=== PATIENT | female | born 1985 | race Caucasian/White ===

== ENCOUNTER 2020-10-12 16:49 | Outpatient (CLI) | payer OTHER ==
--- NOTE | 2020-10-13 08:26 | XRAY Report ---
PROCEDURE: Knee 4 View BILAT INDICATIONS: Bilateral knee pain TECHNIQUE: 3 views of the left and right knee(s) were acquired. COMPARISON: None. FINDINGS: Bones: No fractures or dislocations. No suspicious bony lesions. Mild bilateral medial and lateral joint space narrowing. Scattered degenerative spurring and subchondral sclerosis. Soft tissues: No joint effusion. No suspicious soft tissue calcifications. IMPRESSION: Mild bilateral knee joint degeneration. Reviewed by: Salomón Ferris MD on 10/13/2020 8:24 AM PDT Approved by: Salomón Ferris MD on 10/13/2020 8:24 AM PDT Station ID: [id number]
== END 2020-10-12 16:50 | disposition home or self-care (01) ==
LOC: DI 16:49
PROVIDERS: ATTEND Physician Assistant
DX: M25.561 Pain in right knee (principal); M25.562 Pain in left knee; M17.0 Bilateral primary osteoarthritis of knee

== ENCOUNTER 2021-01-17 09:40 | Outpatient (CLI) | payer OTHER | END 2021-01-17 09:41 | disposition critical access hospital (66) | LOC: EMS 09:40 | DX: R07.2 Precordial pain (principal); M25.512 Pain in left shoulder; M25.511 Pain in right shoulder; R11.2 Nausea with vomiting, unspecified; R73.09 Other abnormal glucose | CPT/HCPCS: A0425; A0427 ==

== ENCOUNTER 2021-01-17 09:57 | Emergency (ER) | payer OTHER ==
[2021-01-17] MEDS ORDERED: SODIUM CHLORIDE 0.9% 1,000 ML IV STA (10:04)
[2021-01-17] MEDS ORDERED: INSULIN REGULAR HUMAN 100 UNIT/1 ML 10 ML MDV IVP STA ×2 (10:04→12:36)
[2021-01-17] MEDS ORDERED: HYDROmorphone 1 MG/ML CARPUJECT IVP STA (10:04)
--- NOTE | 2021-01-17 10:06 | ED Physician Documentation ---
PD HPI CHEST PAIN - Stated complaint Stated Complaint: CP - History obtained from History obtained from: Patient, EMS - Additional information Additional information: 36-year-old woman with history of type 1 diabetes, uses an insulin pump. Replaced her insulin pump port site last night with a new batch. This morning she got up and felt nauseous after drinking coffee. Subsequently vomited twice and after the second episode of vomiting developed substernal chest pain radiating to both shoulders and both arms now with shortness of breath. Denies pedal edema or calf pain. She is not on control. No recent travel. Her blood sugar has been going up this morning. She is generally very well controlled and for EMS it was 355. Took aspirin prior to arrival. 324 mg. Review of Systems Ten Systems: 10 systems reviewed and negative Constitutional: reports: Reviewed and negative Ears: reports: Reviewed and negative PD PAST MEDICAL HISTORY - Allergies Allergies/Adverse Reactions: Allergies Allergy/AdvReac Type Severity Reaction Status Date / Time cefaclor [From Ceclor] Allergy Hives Verified 01/17/21 10:15 PD ED PE NORMAL - Vitals Vital signs reviewed: Yes - General General: Alert and oriented X 3 (She appears restless and in pain) - HEENT HEENT: PERRL, EOMI - Neck Neck: Supple, no meningeal sign, No bony TTP - Cardiac Cardiac: Other (Tachycardic but regular without murmur) - Respiratory Respiratory: No respiratory distress, Clear bilaterally - Abdomen Abdomen: Normal bowel sounds, Soft, Non tender - Back Back: No CVA TTP, No spinal TTP - Derm Derm: Normal color, Warm and dry - Extremities Extremities: No edema, No calf tenderness / cord - Neuro Neuro: Alert and oriented X 3, Normal speech Results - Vitals Vitals: Vital Signs - 24 hr 01/17/21 01/17/21 10:04 12:18 Temperature 36.9 C 36.6 C Heart Rate 100 97 Respiratory 18 18 Rate Blood Pressure 160/80 H 143/83 H O2 Saturation 100 99 Oxygen O2 Source Room air - EKG (time done) 1003 Rate: Rate (enter#) (100) Rhythm: Sinus tachycardia, LAE Gruver: Normal Intervals: Normal NC QRS: Normal Ischemia: Normal ST segments. No: ST elevation c/w ischemia, ST depression Computer interpretation: Agree with computer - Labs Labs: Laboratory Tests 08/10/0401/17/21 01/17/21 10:23 10:23 10:23 WBC 20.7 H RBC 4.67 Hgb 14.2 Hct 41.6 MCV 89.1 MCH 30.4 MCHC 34.1 RDW 12.4 Plt Count 386 MPV 9.8 Neut # (Auto) 17.9 H Lymph # (Auto) 2.3 Baca # (Auto) 0.3 Eos # (Auto) 0.0 Baso # (Auto) 0.1 Absolute Nucleated RBC 0.00 Nucleated RBC % 0.0 Manual Slide Review Indicated Platelet Estimate NORMAL (130-450,000) Platelet Morphology NORMAL APPEARANCE RBC Morph Micro Appear NORMAL APPEARANCE VBG pH VBG pCO2 VBG pO2 VBG HCO3 VBG Total CO2 VBG O2 Saturation VBG Base Excess Sodium 133 L Potassium 4.3 Chloride 98 L Carbon Dioxide 16 L Anion Gap 19.0 H BUN 25 H Creatinine 1.0 Estimated GFR (MDRD) 63 L Glucose 420 H Calcium 9.5 Total Bilirubin 1.4 H AST 27 ALT 32 Alkaline Phosphatase 53 Troponin I High Sens 3.0 Total Protein 7.8 Albumin 4.4 Globulin 3.4 Albumin/Globulin Ratio 1.3 Lipase 23 Serum Ketones 01/17/21 01/17/21 10:23 10:23 WBC RBC Hgb Hct MCV MCH MCHC RDW Plt Count MPV Neut # (Auto) Lymph # (Auto) Baca # (Auto) Eos # (Auto) Baso # (Auto) Absolute Nucleated RBC Nucleated RBC % Manual Slide Review Platelet Estimate Platelet Morphology RBC Morph Micro Appear VBG pH 7.381 VBG pCO2 31.2 L VBG pO2 27.0 VBG HCO3 18.1 L VBG Total CO2 19.0 L VBG O2 Saturation 53.2 L VBG Base Excess -5.7 L Sodium Potassium Chloride Carbon Dioxide Anion Gap BUN Creatinine Estimated GFR (MDRD) Glucose Calcium Total Bilirubin AST ALT Alkaline Phosphatase Troponin I High Sens Total Protein Albumin Globulin Albumin/Globulin Ratio Lipase Serum Ketones NEGATIVE PD MEDICAL DECISION MAKING - ED course ED course: 36-year-old woman with longstanding type 1 diabetes presents with hyperglycemia, vomiting and chest pain. The chest pain follow the vomiting so the differential included Boerhaave's as well as the usual causes of chest pain. As such CT angiography of the chest was done and negative and there is no evidence of heart disease otherwise. Her vital signs normalized after a milligram of Dilaudid and a liter of normal saline. She was also given some IV insulin here. While she does not technically have DKA, she was certainly trending in that direction but no ketonemia right now and her venous pH is normal. Departure - Departure Disposition: 01 Home, Self Care Clinical Impression: Uncontrolled diabetes mellitus Qualifiers: Diabetes mellitus type: type 1 Glycemic state: with hyperglycemia Qualified Code(s): E10.65 - Type 1 diabetes mellitus with hyperglycemia Chest pain Qualifiers: Chest pain type: unspecified Qualified Code(s): R07.9 - Chest pain, unspecified Vomiting Qualifiers: Vomiting type: unspecified Vomiting Intractability: non-intractable Nausea presence: with nausea Qualified Code(s): R11.2 - Nausea with vomiting, unspecified Condition: Good Record reviewed to determine appropriate education?: Yes Instructions: ED Chest Pain NonCardiac Comments: As discussed, while you are not in DKA today, you were sort of trending in that direction so make sure to drink plenty of fluids today and I would recommend changing her port site and returning for new or worsening symptoms. Follow-up with your primary care physician and sociology teacher as well. Discharge Date/Time: 01/17/21 13:23
--- NOTE | 2021-01-17 10:23 | XRAY Report ---
PROCEDURE: Chest 1 View X-Ray INDICATIONS: chest pain TECHNIQUE: One view of the chest was acquired. COMPARISON: None FINDINGS: Surgical changes and devices: None. Lungs and pleura: No pleural effusions or pneumothorax. Lungs are clear. Mediastinum: Mediastinal contours appear normal. Heart size is normal. Bones and chest wall: No suspicious bony lesions. Overlying soft tissues appear unremarkable. IMPRESSION: No acute cardiopulmonary disease process. Reviewed by: Rosaura Breen MD, PhD on 01/17/2021 10:21 AM PDT Approved by: Rosaura Breen MD, PhD on 01/17/2021 10:21 AM PDT Station ID: [id number]
[2021-01-17 10:28] LABS: VBG BASE EXCESS -5.7 mmol/L (-2 - +2); VBG HCO3 18.1 mmol/L (23-28); VBG OXYGEN SATURATION 53.2 % (60-80); VBG PCO2 31.2 mmHg (41-51); VBG PH 7.381 (7.31-7.41)
[2021-01-17 10:29] LABS: BASOPHILS # (AUTO) 0.1 10^3/uL (0.0-0.1); BASOPHILS % (AUTO) 0.2 %; EOSINOPHILS % (AUTO) 0.1 %; HCT - HEMATOCRIT 41.6 % (37.0-47.0); HGB - HEMOGLOBIN 14.2 g/dL (12.0-16.0); LYMPHOCYTES # (AUTO) 2.3 10^3/uL (1.5-3.5); LYMPHOCYTES % (AUTO) 11.3 %; MEAN CORPUSCULAR HEMOGLOBIN 30.4 pg (27.0-31.0); MEAN CORPUSCULAR HGB CONC 34.1 g/dL (32.0-36.0); MEAN CORPUSCULAR VOLUME 89.1 fL (81.0-99.0); MEAN PLATELET VOLUME 9.8 fL (7.9-10.8); MONOCYTES # (AUTO) 0.3 10^3/uL (0.0-1.0); MONOCYTES % (AUTO) 1.4 %; NEUTROPHILS # (AUTO) 17.9 10^3/uL (1.5-6.6); NEUTROPHILS % (AUTO) 86.7 %; PLT - PLATELET COUNT 386 10^3/uL (130-450); RED BLOOD COUNT 4.67 10^6/uL (4.20-5.40); RED CELL DISTRIBUTION WIDTH 12.4 % (12.0-15.0); WHITE BLOOD COUNT 20.7 x10^3/uL (4.8-10.8)
[2021-01-17 10:33] LABS: SLIDE REVIEW? Indicated
[2021-01-17 10:42] LABS: ALBUMIN 4.4 g/dL (3.2-5.5); ALBUMIN/GLOBULIN RATIO 1.3 (1.0-2.2); BILIRUBIN,TOTAL 1.4 mg/dL (0.2-1.0); CALCIUM 9.5 mg/dL (8.5-10.3); POTASSIUM 4.3 mmol/L (3.5-5.0); TOTAL PROTEIN 7.8 g/dL (6.7-8.2)
[2021-01-17] MEDS ORDERED: NS W/20 MEQ KCL 1,000 ML IV STA (10:47)
[2021-01-17] MEDS ORDERED: INSULIN REGULAR HUMAN 100 UNIT in SODIUM CHLORIDE 0.9% 100ML 99 ML IV STA (10:47)
[2021-01-17 11:02] LABS: PLATELET ESTIMATE, MANUAL NORMAL (130-450,000) (NORMAL); PLATELET MORPHOLOGY NORMAL APPEARANCE (NORMAL); RBC MORPHOLOGY (MULTIPLE) NORMAL APPEARANCE (NORMAL)
[2021-01-17] MEDS ORDERED: IOPAMIDOL-300 100 ML VIAL ONE (11:13)
--- NOTE | 2021-01-17 12:18 | CT Report ---
PROCEDURE: ANGIO CHEST W/WO INDICATIONS: chest pain, pe protocol CONTRAST: IV CONTRAST: Isovue 300 ml: 80 PO CONTRAST: *NO PO CONTRAST TECHNIQUE: After the administration of intravenous contrast, images were acquired from the pulmonary apices to t he posterior costophrenic angles. 3-dimensional maximum intensity projection (MIP) coronal and sagit ileana reformats were then acquired through the thorax. For radiation dose reduction, the following was used: automated exposure control, adjustment of mA and/or kV according to patient size. COMPARISON: None FINDINGS: Image quality: Excellent. Pulmonary arteries: Pulmonary arteries are normal in size, and demonstrate no intraluminal filling d efects to suggest central pulmonary embolism. Lungs and pleura: Lungs are clear. No pleural effusions or pneumothorax. Central and peripheral ai rways are patent. Mediastinum: Heart size is normal, without pericardial effusion. No mediastinal or hilar adenopathy . Thoracic aorta is normal in caliber and enhancement. Esophagus is normal in caliber, without hiat al hernia. Bones and chest wall: No suspicious bony lesions. Ribs and thoracic spine appear intact throughout. No axillary or supraclavicular adenopathy. The thyroid is normal in size and there are no incident al findings. Abdomen: Visualized upper abdominal solid organs appear normal in the early arterial phase of enhanc ement. IMPRESSION: Unremarkable CT angiogram of the chest without evidence of pulmonary embolism, aortic dissection or a neurysm. Reviewed by: Russ Minor MD on 01/17/2021 11:17 AM JINA Approved by: Russ Minor MD on 01/17/2021 11:17 AM JINA Station ID: [id number]
[2021-01-17 12:19] VITALS: BP 143/83
[2021-01-17] MEDS ORDERED: IOPAMIDOL-300 100 ML VIAL IVP ONE (13:33)
== END 2021-01-17 13:23 | disposition home or self-care (01) ==
LOC: EDUNIT# → ED 09:57
DX: E10.649 Type 1 diabetes mellitus with hypoglycemia without coma (principal); Z79.4 Long term (current) use of insulin; Z96.41 Presence of insulin pump (external) (internal); R11.2 Nausea with vomiting, unspecified; R07.9 Chest pain, unspecified
CPT/HCPCS: 36415; 71045; 71275; 80053; 82009; 82803; 83690; 84484; 85025; 93005; 96365; 96375; 99284; J1170; J1815; Q9967